=== PATIENT | male | born 2000 | race Caucasian/White ===

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

== ENCOUNTER 2024-10-14 14:03 | Emergency (ER) | payer OTHER, SELFPAY ==
[2024-10-14 15:05] VITALS: BP 167/82; PULSE 113; RESP 18; TEMP 37.1; O2SAT 99; BMI 34.4
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
[2024-10-14 16:40] VITALS: PULSE 99; O2SAT 99
== END 2024-10-14 16:40 | disposition home or self-care (01) ==
PROVIDERS: Emergency Provider Physician Assistant; PCP Family Medicine
DX: Z04.1 Encounter for examination and observation following transport accident (principal); V89.2XXA Person injured in unspecified motor-vehicle accident, traffic, initial encounter
CPT/HCPCS: 99281